=== PATIENT | male | born 1985 | race Caucasian/White ===

== ENCOUNTER 2018-07-10 03:43 | Emergency (ER) | payer OTHER ==
[~2018-07-10] VITALS: Ht 172.7 cm; Wt 89.1 kg
[2018-07-10 03:49] VITALS: Ht 172.7 cm; Wt 89.1 kg
[2018-07-10 05:40] VITALS: BP 124/78
== END 2018-07-10 05:40 | disposition home or self-care (01) ==
LOC: ED 03:43
DX: R50.9 Fever, unspecified (principal); R06.00 Dyspnea, unspecified; R51 Headache; R07.89 Other chest pain
CPT/HCPCS: 87804; J1885; Q0092